=== PATIENT | female | born 1975 | race Caucasian/White ===

== ENCOUNTER 2018-04-21 13:43 | Outpatient (CLI) | payer BC ==
--- NOTE | 2018-04-21 16:25 | MRI ---
MRI CERVICAL SPINE: HISTORY: Cervical stenosis. TECHNIQUE: Multiplanar, multisequence, noncontrast-enhanced MR images of the cervical spine obtained. RADIOGRAPHIC FINDINGS: The spinal cord is unremarkable with no evidence of cord masses or lesions. C1-C2: Unremarkable. C2-C3: Unremarkable. C3-C4: There is a mild broad-based central disk bulge, minimally but not significantly compressing t he thecal sac. The neural foramen are patent. C4-C5: There is a mild broad-based disk bulge without evidence of significant central or neural fora vimal narrowing. C5-C6: Disk desiccation is seen. There is a broad-based disk osteophyte complex centrally compressi ng the thecal sac, resulting in a moderate degree of central and lateral recess stenosis. There is m oderate to severe right and moderate left-sided C5-C6 neural foraminal narrowing, due to uncovertebra l osteophyte hypertrophy. C6-C7: Unremarkable. C7-T1: Unremarkable. IMPRESSION: Disk desiccation with broad-based disk osteophyte complex at C5-C6, compressing the thecal sac and re sulting in bilateral neural foraminal narrowing, greater on the right than on the left. POS: [facility]
== END 2018-04-21 13:44 | disposition home or self-care (01) ==
LOC: BICMRI 13:43
PROVIDERS: ATTEND Nurse Practitioner Family
DX: M48.02 Spinal stenosis, cervical region (principal); M25.78 Osteophyte, vertebrae; M50.922 Unspecified cervical disc disorder at C5-C6 level
CPT/HCPCS: 72141

== ENCOUNTER 2018-07-22 05:59 | Day surgery (SDC) | payer BC ==
[2018-07-21 12:36] VITALS: BMI 43.9
[2018-07-22] MEDS ORDERED: Fentanyl 100 MCG/2 ML VIAL ONE ×2 (06:23→10:26)
[2018-07-22] MEDS ORDERED: Sodium Chloride 0.9% 10 ML ONE (06:32)
[2018-07-22] MEDS ORDERED: Thrombin 5000 UNITS/5 ML VIAL ONE (06:32)
[2018-07-22] MEDS ORDERED: Bacitracin Zinc Ointment 30 gm TUBE ONE (06:32)
[2018-07-22 06:44] LABS: #Basophils 0.1 thou/uL (0.0-0.2); #Eosinphils 0.2 thou/uL (0.0-0.7); #Lymphocytes 1.8 thou/uL (1.20-3.40); #Monocytes 0.4 thou/uL (0.11-0.59); #Neutrophils 2.7 thou/uL (1.40-6.50); %Eosinophils 3.3 % (0.0-10.0); %Lymphocytes 35.4 % (21.0-51.0); %Monocytes 7.7 % (0.0-10.0); %Neutrophils 52.6 % (42.0-75.0); Hemoglobin 12.4 g/dL (12.0-16.0); Mean Corpuscular HGB CONC 33.5 g/dL (32.0-36.0); Mean Corpuscular Hemoglobin 30.9 pg (27.0-31.0); Mean Corpuscular Volume 92.4 fL (78.0-98.0); Mean Platelet Volume 6.7 fL (7.4-10.4); Platelet Count 267 thou/uL (130-400); RBC Distribution Width 10.9 % (11.5-14.5); White Blood Cell (WBC) Count 5.2 thou/uL (4.8-10.8)
[2018-07-22 06:50] LABS: PTT 26.4 SEC (22.9-36.1)
[2018-07-22 07:03] LABS: Anion Gap 10 mmol/L (10-20); BUN (Urea Nitrogen) 11 mg/dL (7.0-18.7); Calc. Creatinine Clearance 131 mL/min (70-130); Calcium 9.2 mg/dL (7.8-10.44); Carbon Dioxide 23 mmol/L (22-29); Chloride 109 mmol/L (98-107); Estimated GFR-MDRD 65; Glucose 100 mg/dL (70-105); Potassium 4.4 mmol/L (3.5-5.1); Sodium 138 mmol/L (136-145)
[2018-07-22] MEDS ORDERED: HYDROmorphone 2 MG/ML VIAL ONE (09:28)
[2018-07-22] MEDS ORDERED: PACU-Morphine 4MG/ML VIAL SLOW IVP PRN (09:28)
[2018-07-22] MEDS ORDERED: Promethazine HCl 25 MG/ML VIAL SLOW IVP PRN (09:28)
[2018-07-22] MEDS ORDERED: Meperidine HCl/PF 25 MG/ML VIAL SLOW IVP PRN (09:28)
[2018-07-22] MEDS ORDERED: Promethazine HCl 25 MG/ML VIAL IM PRN (09:28)
[2018-07-22] MEDS ORDERED: Ondansetron HCl/PF 4 MG/2 ML Vial IVP PRN (09:28)
[2018-07-22] MEDS ORDERED: HYDROmorphone 2 MG/ML VIAL SLOW IVP PRN (09:28)
[2018-07-22] MEDS ORDERED: Morphine Sulfate 2 MG/ML SYRINGE SLOW IVP PRN (09:28)
[2018-07-22] MEDS ORDERED: Promethazine HCl 25 MG/ML VIAL IM/IV PRN (09:36)
[2018-07-22] MEDS ORDERED: Acetaminophen 325 MG TAB PO PRN (09:36)
[2018-07-22] MEDS ORDERED: Midazolam HCl 2 mg/2 ml Vial ONE (10:00)
[2018-07-22] MEDS ORDERED: Dexamethasone 20 MG/5 ML VIAL ONE (10:49)
[2018-07-22] MEDS ORDERED: PROPOFOL 200 MG/20 ML VIAL ONE (10:49)
[2018-07-22] MEDS ORDERED: PHENYLEPHRINE-NS 100 MCG/ML 10 ML SYRINGE ONE (10:49)
[2018-07-22] MEDS ORDERED: Rocuronium Bromide 10 MG/ML (10ML VIAL) ONE (10:49)
[2018-07-22] MEDS ORDERED: Lidocaine 1% PF 5 ML VIAL ONE (10:49)
[2018-07-22] MEDS ORDERED: Ondansetron PF 4 MG/2 ML Vial ONE (10:49)
[2018-07-22] MEDS ORDERED: Glycopyrrolate 0.2 MG/ML 5 ML SYRINGE ONE (10:49)
[2018-07-22] MEDS: HYDROcodone/Acetaminophen 7.5/325 mg Tablet PO PRN ×2 (12:06→18:33)
[2018-07-22] MEDS: Sodium Chloride 0.9% 1,000 ML IV SCH ×2 (12:38→22:50)
[2018-07-22] MEDS: Acetaminophen/Codeine 30-300mg Tablet PO PRN ×3 (12:58→20:36)
[2018-07-22] MEDS: Morphine 2 MG/ML SYRINGE SLOW IVP PRN ×2 (13:56→22:49)
[2018-07-22] MEDS: CEFAZOLIN 2 GM in Premix Bag 1 BAG IVPB SCH ×2 (14:36→22:49)
--- NOTE | 2018-07-22 15:16 | OP ---
DATE OF PROCEDURE: 07/22/2018 [employer]: Marcel De Luna PA-C PREOPERATIVE DIAGNOSIS: C5-C6 stenosis with cervical radiculopathy. POSTOPERATIVE DIAGNOSIS: C5-C6 stenosis with cervical radiculopathy. PROCEDURE PERFORMED: 1. C5-C6 anterior diskectomy for decompression of the spinal cord nerve roots. 2. Placement of interbody spacer packed with allograft obtained from the same incision for arthrodesis. 3. Anterior cervical plate and screw fixation, C5-C6. 4. Use of operative microscope for microdissection. DESCRIPTION OF PROCEDURE: After informed consent was obtained from the patient, the patient was brought to the OR. Proper patient, pause, and identification were carried out. She was placed under excellent general endotracheal anesthesia and positioned supine on the OR table. Right transverse kris was drawn out to allow approach to the C5-C6 segment. This region was sterilely cleansed, prepared, and draped. Proper patient, pause, and identification were carried out. The wound was then opened with combination of sharp, monopolar, and blunt dissection. We proceeded lateral to the tracheoesophageal bundle, medial to the right carotid sheath. We identified the prevertebral layer of deep cervical fascia and distraction at C5-C6 segment then occurred, and the microscope was brought in for microdissection. Diskectomy was performed. Following satisfactory decompression of the spinal cord in the C6 nerve roots, we then placed an interbody spacer packed with graft for arthrodesis and after preparation of the endplates. Copious irrigation occurred throughout. The microscope was removed. Anterior cervical plate and screw fixation occurred with final tightening and the wound was closed in anatomic layers over drain, following hemostasis and copious irrigation. Job ID: [id number]
[2018-07-22] MEDS: traMADol HCl 50 MG TAB PO PRN (20:37)
[2018-07-22] MEDS ORDERED: Cyclobenzaprine 10 MG TAB PO SCH (21:00)
[2018-07-23] MEDS: CEFAZOLIN 2 GM in Premix Bag 1 BAG IVPB SCH ×2 (05:50→15:15)
[2018-07-23] MEDS: traMADol HCl 50 MG TAB PO PRN ×2 (05:54→11:49)
[2018-07-23] MEDS: Acetaminophen/Codeine 30-300mg Tablet PO PRN ×3 (05:55→15:15)
[2018-07-23] MEDS ORDERED: DESOGESTREL ETHINYL ESTRADIOL PO SCH (09:00)
[2018-07-23] MEDS: HYDROcodone/Acetaminophen 7.5/325 mg Tablet PO PRN ×2 (09:36→16:16)
--- NOTE | 2018-07-23 10:16 | PRG ---
DATE OF SERVICE: 07/23/2018 Ms. Posey is postoperative day 1 from C5-C6 ACDF. She has had resolution in her arm pain and has mild dysphonia and mild dysphagia. She is ambulating. Her drain output has been 80 mL overnight. We will leave this in this morning and monitor its output with a possible removal and discharge later today. Neurologically, she is doing very well. We went over the interim postoperative issues. Job ID: [id number]
[2018-07-23] MEDS: Sodium Chloride 0.9% 1,000 ML IV SCH (15:14)
[2018-07-23 19:56] VITALS: BP 144/83; TEMP 98.5
== END 2018-07-23 19:56 | disposition home or self-care (01) ==
LOC: SDC 05:59 → SURG B 11:44 → SDC 07-23 19:56
PROVIDERS: ATTEND Surgery
PROC: 0RT30ZZ Resection of Cervical Vertebral Disc, Open Approach (ICD-10-PCS; principal; 2018-07-22)
PROC: 0RG10A0 Fusion of Cervical Vertebral Joint with Interbody Fusion Device, Anterior Approach, Anterior Column, Open Approach (ICD-10-PCS; principal; 2018-07-22)
DX: M48.02 Spinal stenosis, cervical region (principal); M54.12 Radiculopathy, cervical region; Z79.82 Long term (current) use of aspirin; Z79.891 Long term (current) use of opiate analgesic; Z79.899 Other long term (current) drug therapy; Z88.2 Allergy status to sulfonamides
CPT/HCPCS: 36415; 76000; 80048; 85025; 85610; 85730; C1713; C1776; J0690; J1100; J1170; J2001; J2250; J2270; J2405; J2704; J3010; J3370; J3490

== ENCOUNTER 2018-09-08 12:56 | Outpatient (CLI) | payer BC ==
--- NOTE | 2018-09-08 13:12 | RAD ---
Cervical spine 3 views: HISTORY: Cervical stenosis follow-up neck surgery Anterior cervical fusion changes at C5-C6. No significant abnormal prevertebral soft tissue swelling. No malalignment. Mild changes of spondylosis. IMPRESSION: Unremarkable post anterior cervical fusion changes at C5-C6.
== END 2018-09-08 12:57 | disposition home or self-care (01) ==
LOC: TBSIIMAG 12:56
PROVIDERS: ATTEND Surgery
DX: M48.02 Spinal stenosis, cervical region (principal); Z98.890 Other specified postprocedural states
CPT/HCPCS: 72040